=== PATIENT | female | born 1995 | race Caucasian/White ===

== ENCOUNTER → 2019-07-02 | Outpatient (REF) | payer OTHER ==
[2019-07-02 13:24] LABS: BASO % 0.5 % (0.0-1.0); EOS # 0.2 10^3/uL (0.0-0.50); HEMATOCRIT 40.5 % (36.0-47.0); HEMOGLOBIN 13.6 g/dl (12.0-15.5); LYMPH # 1.9 10^3/uL (1.5-6.5); LYMPH % 29.2 % (24.0-44.0); MEAN CORPUSCULAR HEMOGLOBIN 29.9 pg (27.0-33.0); MEAN CORPUSCULAR HGB CONC 33.6 g/dl (32.0-36.5); MONO # 0.5 10^3/uL (0.0-0.8); MONO % 7.9 % (0.0-5.0); NEUTROPHILS # 3.8 10^3/uL (1.8-7.7); NEUTROPHILS % 59.2 % (36.0-66.0); PLATELET COUNT, AUTOMATED 222 10^3/uL (150-450); RED BLOOD COUNT 4.55 10^6/uL (4.00-5.40); WHITE BLOOD COUNT 6.4 10^3/uL (4.0-10.0)
[2019-07-02 13:46] LABS: PERCENT SATURATION 23.3 % (13.2-45.0)
== END ==
LOC: M LABDRWAD 12:16
PROVIDERS: ATTEND Physician Assistant Medical
DX: R53.83 Other fatigue (principal); D50.9 Iron deficiency anemia, unspecified

== ENCOUNTER → 2023-09-19 | Outpatient (CLI) | payer BC | LOC: M WHC 15:08 | PROVIDERS: ATTEND Specialist | DX: Z34.02 Encounter for supervision of normal first pregnancy, second trimester (principal); Z36.2 Encounter for other antenatal screening follow-up; Z3A.25 25 weeks gestation of pregnancy ==

== ENCOUNTER → 2023-12-04 | Outpatient (REF) | payer BC | LOC: M PLALAB 15:37 | PROVIDERS: ATTEND Advanced Practice Midwife | DX: Z34.03 Encounter for supervision of normal first pregnancy, third trimester (principal) ==

== ENCOUNTER 2024-01-01 07:29 | Inpatient (IN) | payer BC ==
[~2024-01-01] VITALS: Ht 157.5 cm; Wt 75.4 kg
[2024-01-01] VITALS (19 sets, daily range): BP systolic 112–141; BP diastolic 60–87
[2024-01-01] MEDS ORDERED: PRENTAB9 PO (07:59)
[2024-01-01] MEDS ORDERED: NEXI20CA PO (07:59)
[2024-01-01] MEDS ORDERED: LIDOCAINE 1% MDV 20ML VIAL INFIL PRN (08:05)
[2024-01-01] MEDS ORDERED: OXYTOCIN INJ 10UNITS/ML 1ML VIAL IV PRN (08:05)
[2024-01-01 08:26] LABS: BASO # 0.1 10^3/uL (0.0-0.2); BASO % 0.4 % (0.0-1.0); EOS # 0.2 10^3/uL (0.0-0.5); EOS % 1.8 % (0.0-3.0); HEMATOCRIT 37.9 % (36.0-47.0); HEMOGLOBIN 13.1 g/dl (12.0-15.5); LYMPH # 1.6 10^3/uL (1.5-5.0); LYMPH % 13.7 % (24.0-44.0); MEAN CORPUSCULAR HEMOGLOBIN 29.4 pg (27.0-33.0); MEAN CORPUSCULAR HGB CONC 34.6 g/dl (32.0-36.5); MEAN CORPUSCULAR VOLUME 85.2 fl (80.0-96.0); MONO % 8.4 % (2.0-8.0); NEUTROPHILS # 8.7 10^3/uL (1.5-8.5); PLATELET COUNT, AUTOMATED 162 10^3/uL (150-450); RED BLOOD COUNT 4.45 10^6/uL (4.00-5.40); WHITE BLOOD COUNT 11.6 10^3/uL (4.0-10.0)
[2024-01-01] MEDS: miSOPROStol 50MCG 1/2 TABLET SL SCH (08:27)
[2024-01-01] MEDS: LR 1,000 ML IV SCH (21:11)
[2024-01-01] MEDS: OXYTOCIN DRIP 30 UNITS in IV 1 EA IV SCH (21:11)
[2024-01-02] VITALS (43 sets, daily range): BP systolic 92–137; BP diastolic 50–84; TEMP 97.9; O2SAT 97–100
[2024-01-02] MEDS: LR 1,000 ML IV ONE (02:46)
[2024-01-02] MEDS ORDERED: EPIDURAL/PCA KEYS XX PRN (03:05)
[2024-01-02] MEDS ORDERED: NALOXONE INJ 0.4MG/1ML VIAL IV PRN ×3 (03:05→13:20)
[2024-01-02] MEDS ORDERED: diphenhydrAMINE 50MG/ML VIAL IV PRN ×2 (03:05→13:20)
[2024-01-02] MEDS: FENTANYL/ROPIVACAINE/NACL BAG 100 ML EPIDURAL SCH (03:13)
[2024-01-02] MEDS: ONDANSETRON 4MG 2ML VIAL IV PRN (03:13)
[2024-01-02] MEDS: ePHEDrine SULFATE 25 MG/5 ML(5MG/ML) SYRINGE IVP PRN (05:07)
[2024-01-02] MEDS: LR 500 ML IV PRN (05:08)
[2024-01-02] MEDS: BICITRA 30ML SOLN UDC PO ONE (11:07)
[2024-01-02] MEDS: ceFAZolin SOD 2 GM in IV 1 EA IV ONE (11:07)
[2024-01-02] MEDS: AZITHROMYCIN INJ 500 MG, VIAL MATE ADAPTER 1 EACH in NS 250 ML IV ONE (11:07)
[2024-01-02] MEDS ORDERED: LIDOCAINE 2% W/EPINEPHRINE 20ML VIAL **PRES FREE As Ordered ONE (11:12)
[2024-01-02] MEDS ORDERED: KETOROLAC 60MG 2ML VIAL As Ordered ONE (11:34)
[2024-01-02] MEDS ORDERED: OXYTOCIN 30UNITS IN 0.9% NaCl 500ML IV BAG As Ordered ONE (11:34)
[2024-01-02] MEDS ORDERED: ACETAMINOPHEN 1000MG 100ML IV BAG As Ordered ONE (11:34)
[2024-01-02] MEDS ORDERED: ONDANSETRON 4MG 2ML VIAL As Ordered ONE (11:52)
[2024-01-02] MEDS ORDERED: MORPHINE PRES-FREE INJ 10 MG/10 ML VIAL As Ordered ONE (12:06)
[2024-01-02] MEDS ORDERED: PHENYLephrine 500MCG 5ML (100MCG/ML) SYRINGE As Ordered ONE (12:11)
[2024-01-02 12:12] LABS: CORD GAS ABE A -5.5; CORD GAS ABE V -4.2; CORD GAS HCO3 A 21.4 MMOL/L; CORD GAS HCO3 V 21.5 MMOL/L; CORD GAS O2 SAT A 62.2 %; CORD GAS O2 SAT V 84.1 %; CORD GAS PCO2 A 46.7 mmHg; CORD GAS PCO2 V 41.9 mmHg; CORD GAS PH A 7.278 UNITS; CORD GAS PH V 7.329 UNITS; CORD GAS PO2 A 29.3 mmHg; CORD GAS PO2 V 41.5 mmHg; CORD GAS SBC A 19.1 MMOL/L; CORD GAS SBC V 20.7 MMOL/L; CORD GAS TCO2 A 22.8 MMOL/L; CORD GAS TCO2 V 22.8 MMOL/L
[2024-01-02] MEDS ORDERED: MOM 30ML SUSPENSION UDC PO PRN (12:30)
[2024-01-02] MEDS ORDERED: SIMETHICONE 80MG CHEW TAB PO PRN (12:30)
[2024-01-02] MEDS ORDERED: RHOGAM 300MCG (1500IU) INJ IM SCH (12:30)
[2024-01-02] MEDS ORDERED: ACETAMINOPHEN 500 MG TAB PO PRN (12:30)
[2024-01-02] MEDS: OXYTOCIN DRIP 30 UNITS in IV 1 EA IV SCH (12:45)
[2024-01-02] MEDS ORDERED: **NOTE PATIENT COMMENT** MISC XX SCH (13:20)
[2024-01-02] MEDS ORDERED: PROMETHAZINE 25MG/ML 1ML VIAL IV PRN (13:20)
[2024-01-02] MEDS ORDERED: fentaNYL 100 MCG/2 ML INJECTION IV PRN (13:20)
[2024-01-02] MEDS ORDERED: oxyCODONE 5MG TAB PO PRN (13:20)
[2024-01-02] MEDS ORDERED: ONDANSETRON 4MG 2ML VIAL IV PRN ×2 (13:20)
[2024-01-02] MEDS: SLF 3 ML SYR IV SCH (14:34)
[2024-01-02] MEDS: METOCLOPRAMIDE INJ 10MG/2ML VIAL IV PRN (15:06)
[2024-01-02] MEDS: LACTATED RINGER'S 1000 ML IV ONE (16:45)
[2024-01-02] MEDS: KETOROLAC 30 MG/ML 1ML VIAL IV SCH (17:58)
[2024-01-02] MEDS: DOCUSATE SODIUM 100MG CAPSULE PO SCH (21:00)
[2024-01-03 02:00] VITALS: BP 117/73; O2SAT 99
[2024-01-03 06:00] VITALS: BP 104/63; O2SAT 97
[2024-01-03 06:04] LABS: HEMATOCRIT 32.5 % (36.0-47.0); MEAN CORPUSCULAR HEMOGLOBIN 29.7 pg (27.0-33.0); MEAN CORPUSCULAR HGB CONC 33.8 g/dl (32.0-36.5); MEAN CORPUSCULAR VOLUME 87.8 fl (80.0-96.0); PLATELET COUNT, AUTOMATED 172 10^3/uL (150-450); WHITE BLOOD COUNT 14.2 10^3/uL (4.0-10.0)
[2024-01-03] MEDS: PRENATAL VITAMINS CHEWABLE TABLET PO SCH (08:28)
[2024-01-03 10:00] VITALS: BP 117/73; O2SAT 100
[2024-01-03 14:00] VITALS: BP 135/74; O2SAT 97
[2024-01-03] MEDS: IBUPROFEN 800 MG TAB PO SCH (14:38)
[2024-01-03 18:00] VITALS: BP 138/61; O2SAT 97
[2024-01-03 22:00] VITALS: BP 115/63; O2SAT 96
[2024-01-04 02:00] VITALS: BP 114/54; O2SAT 99
[2024-01-04 06:00] VITALS: BP 125/72; O2SAT 99
[2024-01-04] MEDS: MEASLES,MUMPS,RUBELLA VACCINE INJ (MMR-II) SC.IMMUN ONE (08:28)
[2024-01-04 10:00] VITALS: BP 123/70; O2SAT 99
[2024-01-04] MEDS ORDERED: IBUP80TA PO (12:44)
== END 2024-01-04 14:00 | disposition home or self-care (01) | DRG 540 ==
LOC: M LDI 07:29 → M OBS 01-02 13:53
PROVIDERS: ADMIT Specialist; ATTEND Obstetrics & Gynecology
PROC: 3E0P7GC Introduction of Other Therapeutic Substance into Female Reproductive, Via Natural or Artificial Opening (ICD-10-PCS; 2024-01-01)
PROC: 10D00Z1 Extraction of Products of Conception, Low, Open Approach (ICD-10-PCS; principal; 2024-01-02 11:22)
DX: O13.4 Gestational [pregnancy-induced] hypertension without significant proteinuria, complicating childbirth (principal); O48.0 Post-term pregnancy; Z3A.40 40 weeks gestation of pregnancy; O77.0 Labor and delivery complicated by meconium in amniotic fluid; O62.0 Primary inadequate contractions; Z37.0 Single live birth

== ENCOUNTER → 2025-07-13 | Outpatient (CLI) | payer BC ==
[~2025-07-13] MED LIST: IBUP80TA PO; NEXI20CA PO; PRENTAB9 PO
[2025-07-13 18:23] LABS: TOTAL PROTEIN,RANDOM URINE 13.7 MG/DL (0.0-14.0)
[2025-07-13 19:06] LABS: PLATELET COUNT, AUTOMATED 252 10^3/uL (150-450)
[2025-07-13 19:23] LABS: Trichomonas vaginalis (AMP) NOT DETECTED (NEGATIVE)
[2025-07-13 19:28] LABS: LDH LACTATE DEHYDROGENASE 169 U/L (120-246)
[2025-07-13 19:29] LABS: ALT/SGPT 10 U/L (7.0-40); AST/SGOT 16 U/L (<34); CREATININE FOR GFR 0.70 MG/DL (0.55-1.30); GLOMERULAR FILTRATION RATE > 90.0 (>60)
[2025-07-13 19:46] LABS: GC DNA AMPLIFICATION NEGATIVE (NEGATIVE)
[2025-07-13 19:53] LABS: HIV 1&2 SCREEN NEGATIVE (NEGATIVE)
[2025-07-13 20:02] LABS: HEPATITIS C VIRUS ABY INDEX < 0.02 INDEX (<0.8)
== END ==
LOC: M PLALAB 15:25
PROVIDERS: ATTEND Nurse Practitioner Family
DX: Z34.80 Encounter for supervision of other normal pregnancy, unspecified trimester (principal)

== ENCOUNTER → 2025-07-13 | Outpatient (REF) | payer BC | LOC: M PLALAB 15:07 | PROVIDERS: ATTEND Nurse Practitioner Family | DX: Z53.9 Procedure and treatment not carried out, unspecified reason (principal) ==

== ENCOUNTER → 2025-09-02 | Outpatient (CLI) | payer BC | LOC: M WHC 15:00 | PROVIDERS: ATTEND Nurse Practitioner Family | DX: Z36.89 Encounter for other specified antenatal screening (principal) ==

== ENCOUNTER → 2025-11-03 | Outpatient (CLI) | payer BC ==
[2025-11-03 19:56] LABS: PLATELET COUNT, AUTOMATED 208 10^3/uL (150-450)
[2025-11-03 20:37] LABS: GLUCOSE CHALLENGE TEST 1 HOUR 69 MG/DL (LESS THAN 140)
[2025-11-03 21:06] LABS: HIV 1&2 SCREEN NEGATIVE (NEGATIVE)
[2025-11-03 21:14] LABS: HEPATITIS C VIRUS ABY INDEX 0.05 INDEX (<0.8)
[2025-11-03 21:42] LABS: Trichomonas vaginalis (AMP) NOT DETECTED (NEGATIVE)
[2025-11-03 22:07] LABS: GC DNA AMPLIFICATION NEGATIVE (NEGATIVE)
== END ==
LOC: M PLALAB 14:48
PROVIDERS: ATTEND Advanced Practice Midwife
DX: Z34.82 Encounter for supervision of other normal pregnancy, second trimester (principal)